=== PATIENT | female | born 2005 | race Caucasian/White ===

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

== ENCOUNTER → 2024-01-17 | Outpatient (CLI) | payer BC ==
[2024-01-17 14:04] LABS: ALBUMIN 3.6 G/DL (3.2-5.2); ALKALINE PHOSPHATASE 77 U/L (46-116); ALT/SGPT 19 U/L (7.0-40); AST/SGOT 15 U/L (<34); BASO % 0.4 % (0.0-1.0); BILIRUBIN,TOTAL 0.4 MG/DL (0.3-1.2); BLOOD UREA NITROGEN 14 MG/DL (9-23); CALCIUM LEVEL 9.9 MG/DL (8.5-10.1); CARBON DIOXIDE LEVEL 27 MMOL/L (20-31); CHLORIDE LEVEL 107 MMOL/L (98-107); CREATININE FOR GFR 0.75 MG/DL (0.55-1.30); EOS # 0.1 10^3/uL (0.0-0.5); EOS % 2.2 % (0.0-3.0); GLUCOSE, FASTING 85 MG/DL (60-100); HEMATOCRIT 39.6 % (36.0-47.0); HEMOGLOBIN 13.3 g/dl (12.0-15.5); LYMPH # 1.8 10^3/uL (1.5-5.0); LYMPH % 33.2 % (24.0-44.0); MEAN CORPUSCULAR HEMOGLOBIN 29.2 pg (27.0-33.0); MEAN CORPUSCULAR HGB CONC 33.6 g/dl (32.0-36.5); MEAN CORPUSCULAR VOLUME 86.8 fl (80.0-96.0); MONO # 0.6 10^3/uL (0.0-0.8); MONO % 10.6 % (2.0-8.0); NEUTROPHILS # 2.9 10^3/uL (1.5-8.5); NEUTROPHILS % 53.4 % (36.0-66.0); PLATELET COUNT, AUTOMATED 357 10^3/uL (150-450); POTASSIUM SERUM 4.2 MMOL/L (3.5-5.1); RED BLOOD COUNT 4.56 10^6/uL (4.00-5.40); RHEUMATOID FACTOR QUANT 7.5 IU/ML (<14); SODIUM LEVEL 138 MMOL/L (136-145); THYROID PEROXIDASE ANTIBODY 42 U/ML (<60.0); THYROID STIMULATING HORMONE 1.248 uIU/ML (0.48-4.17); THYROXINE (T4) 14.5 UG/DL (5.5-11.1); TOTAL PROTEIN 7.2 G/DL (5.7-8.2); TOTAL T3 230.5 NG/DL (86.0-192.0); WHITE BLOOD COUNT 5.5 10^3/uL (4.0-10.0)
[2024-01-17 14:18] LABS: ERYTHROCYTE SEDIMENTATION RATE 22 mm/hr (0-20)
== END ==
LOC: M LAB 11:40
PROVIDERS: ATTEND Allergy & Immunology Allergy
DX: L50.1 Idiopathic urticaria (principal)

== ENCOUNTER → 2024-06-08 | Outpatient (CLI) | payer BC | LOC: M SOG 08:04 | PROVIDERS: ATTEND Physician Assistant | DX: M25.561 Pain in right knee (principal); M25.551 Pain in right hip ==

== ENCOUNTER → 2025-01-01 | Outpatient (REF) | payer BC ==
[2025-01-01 18:58] LABS: C REACTIVE PROTEIN QUANTITATIV < 0.50 MG/DL (<1.0); IRON (FE) 42 UG/DL (50-170); PERCENT SATURATION 9.7 % (13.2-45.0); RHEUMATOID FACTOR QUANT 8.1 IU/ML (<14); VITAMIN B12 LEVEL 295 PG/ML (211-911)
[2025-01-07 14:12] LABS: LYME TOTAL ANTIBODY CIA <= 0.90 Index (<=0.90)
== END ==
LOC: M LAB REF 17:37
PROVIDERS: ATTEND Internal Medicine
DX: D64.9 Anemia, unspecified (principal); M15.9 Polyosteoarthritis, unspecified

== ENCOUNTER → 2025-02-18 | Outpatient (REF) | payer BC ==
[2025-02-18 15:27] LABS: IRON (FE) 62.0 UG/DL (50-170)
[2025-02-18 15:28] LABS: PERCENT SATURATION 13.5 % (13.2-45.0)
== END ==
LOC: M LAB REF 12:16
PROVIDERS: ATTEND Internal Medicine
DX: D50.9 Iron deficiency anemia, unspecified (principal)